=== PATIENT | female | born 1980 | race Caucasian/White ===

== ENCOUNTER 2020-12-16 14:09 | Outpatient (REF) | payer OTHER, SELFPAY ==
--- NOTE | ~2020-12-16 | MM_ITS ---
EXAMINATION: MM DIAGNOSTIC DIGITAL BREAST TOMOSYNTHESIS, BILATERAL CLINICAL INFORMATION: Due for yearly. Also follow-up probable benign calcifications central and upper outer right breast initially noted at baseline exam. The lifetime risk of breast cancer based on the Tyrer-Cuzick Model is 17%. COMPARISON: Mammography: 11/06/2019, 05/08/2019, 11/03/2018, 10/16/2018 (baseline, BI-RADS 0), targeted right breast ultrasound 05/08/2019. TECHNIQUE: Digital breast tomosynthesis is performed in both the craniocaudal and mediolateral oblique views along with computer-aided detection (CAD). Synthesized 2D images are generated from the tomosynthesis. Additional magnification right CC and magnification right ML views are obtained. FINDINGS: The breasts are heterogeneously dense, which may obscure small masses (ACR BI-RADS breast composition Category c). Parenchymal pattern is similar to prior exam. There is no significant mass or architectural abnormality. Known cyst posterior 12:00 position right breast is borderline increased in size. The axilla and skin contours are unremarkable. Additional magnification views right breast again show the punctate round and some layering calcifications central and upper outer breast. There has been no significant change from prior diagnostic study and the calcifications are now considered to be benign. Results are provided to the patient at time of visit by the technologist. MM/MM tomosynthesis diagnostic BI IMPRESSION: No significant changes from prior studies. Right breast calcifications are now considered to be benign. ASSESSMENT: BI-RADS 2: Benign RECOMMENDATION: Routine annual mammography screening. This patient's information was entered into a reminder system with a target due date for their next mammogram.
== END 2020-12-16 14:10 | disposition home or self-care (01) ==
LOC: HO.MAMMO 14:09
PROVIDERS: PCP Internal Medicine; Visit Provider Internal Medicine
DX: R92.1 Mammographic calcification found on diagnostic imaging of breast (principal)
CPT/HCPCS: 77062; 77066

== ENCOUNTER 2021-06-01 12:51 | Outpatient (REF) | payer OTHER, SELFPAY ==
--- NOTE | ~2021-06-01 | US_ITS ---
EXAMINATION: US ABDOMEN COMPLETE CLINICAL INFORMATION: Liver lesion seen on a prior MR exam.. COMPARISON: Dictated report MR thoracic spine performed at outside institution. Images not available for review. TECHNIQUE: Real-time imaging of the abdominal viscera. Color Doppler exam used. FINDINGS: PANCREAS: Normal. ABDOMINAL AORTA: The proximal, mid, and distal segments are normal in caliber. INFERIOR VENA CAVA: Visualized portions are normal. LIVER: MR thoracic spine report states 1.2 cm T2 indeterminate hyperintense focus within the right hepatic lobe. There is a cyst in the right hepatic lobe correlating to this finding on ultrasound. This is an anechoic cyst. Benign finding. This measures 0.7 x 0.5 x 0.9 cm. No suspicious liver lesions. No solid liver lesion. No intrahepatic bile duct dilatation. GALLBLADDER: Gallbladder partially distended. No gallstone. There is a 2 mm polyp at the anterior wall of the neck of the gallbladder. No pericholecystic fluid. Negative ultrasound Umaña's sign. COMMON BILE DUCT: Normal in caliber measuring 0.6 cm in diameter. RIGHT KIDNEY: Normal. No hydronephrosis. No renal calculi or focal parenchymal lesions. The kidney measures 10 cm in maximum dimension. LEFT KIDNEY: Normal. No hydronephrosis. No renal calculi or focal parenchymal lesions. The kidney measures 10.5 cm in maximum dimension. SPLEEN: Normal. The spleen measures 8.8 cm in maximum dimension. FREE FLUID: None. US/US abdomen complete IMPRESSION: 1. Small hepatic cyst right lobe liver correlating to finding of MR. No suspicious liver lesions. 2. 2 mm polyp in the gallbladder. No gallstone. No acute change of gallbladder. The bile duct dilatation.
== END 2021-06-01 12:52 | disposition home or self-care (01) ==
LOC: HO.US 12:51
PROVIDERS: Visit Provider Physician Assistant
DX: K76.89 Other specified diseases of liver (principal)
CPT/HCPCS: 76700

== ENCOUNTER 2021-06-14 15:50 | Outpatient (REF) | payer OTHER, SELFPAY ==
[2021-06-14 23:28] LABS: Folate 12.2 ng/mL (> or = 4.0); Vitamin B12 1172 pg/mL (200-900)
== END 2021-06-14 15:51 | disposition home or self-care (01) ==
LOC: HO.LAB 15:50
PROVIDERS: PCP Internal Medicine; Visit Provider Physician Assistant
DX: E53.8 Deficiency of other specified B group vitamins (principal)
CPT/HCPCS: 36415; 82607; 82746

== ENCOUNTER 2021-12-21 07:59 | Outpatient (REF) | payer OTHER, SELFPAY ==
--- NOTE | ~2021-12-21 | MM_ITS ---
EXAMINATION: MM SCREENING DIGITAL BREAST TOMOSYNTHESIS, BILATERAL CLINICAL INFORMATION: Screening. Asymptomatic. The lifetime risk of breast cancer based on the Tyrer-Cuzick Model is 16%. COMPARISON: Mammography: 12/16/2020, 11/06/2019, 05/08/2019, 11/03/2018, 10/16/2018 (baseline); ultrasound right breast 05/08/2019 TECHNIQUE: Digital breast tomosynthesis is performed in both the craniocaudal and mediolateral oblique views along with computer-aided detection (CAD). Synthesized 2D images are generated from the tomosynthesis. FINDINGS: The breasts are heterogeneously dense, which may obscure small masses (ACR BI-RADS breast composition Category c). Simple cyst posterior 12:00 right breast is slightly increased in size, currently measurements 1.0 x 1.2 cm in prior measurements 0.8 x 1.0 cm. There is no interval new dominant mass or architectural abnormality. Calcifications central and upper outer right breast are stable. There are no abnormal calcifications in either breast. The axilla and skin contours are unremarkable. No significant changes. MM/MM tomosynthesis screening BI IMPRESSION: No significant changes from prior exam. ASSESSMENT: BI-RADS 2: Benign RECOMMENDATION: Routine annual mammography screening. This patient's information was entered into a reminder system with a target due date for their next mammogram.
== END 2021-12-21 08:00 | disposition home or self-care (01) ==
LOC: HO.MAMMO 07:59
PROVIDERS: PCP Internal Medicine; Visit Provider Internal Medicine
DX: Z12.31 Encounter for screening mammogram for malignant neoplasm of breast (principal)
CPT/HCPCS: 77063; 77067

== ENCOUNTER 2022-05-17 13:19 | Outpatient (REF) | payer OTHER, SELFPAY ==
--- NOTE | ~2022-05-17 | US_ITS ---
EXAMINATION: US PELVIS CLINICAL INFORMATION: History of leiomyomas. Unknown LMP. COMPARISON: CT abdomen/pelvis 02/07/2016. TECHNIQUE: Ultrasound of the pelvis is performed using both transabdominal and transvaginal transducers along with Doppler. Transvaginal imaging is performed due to inadequate visualization transabdominally. FINDINGS: The uterus is anteverted and anteflexed measuring 13 x 7.5 x 10.5 cm. There is a 8.6 x 7.2 x 8.7 cm predominantly intramural fundal mass, a 4 x 5.2 x 3.3 cm right-sided mid to lower body intramural mass and a 4.1 x 2.7 x 3.3 cm left-sided mid body intramural mass. The endometrium is distorted by the uterine lesions however the visualized portions measure up to 0.5 cm in thickness. An IUD appears in satisfactory positioning within the endometrial canal. The right ovary measures 3.6 x 3.3 x 2.8 cm, 17 mL and the left ovary measures 2.6 x 1.2 x 1 cm, 5.3 mL. There is a simple cyst in the right ovary measuring 2.6 cm, almost certainly benign, for which no imaging follow-up is recommended. There is preserved flow to both ovaries at the moment of this examination. No free fluid. US/US pelvic and transvaginal IMPRESSION: 1. Multiple uterine lesions that statistically are in favor to represent fibroids. If clinical deemed appropriate further characterization with a pelvic MRI with and without IV contrast could be obtained. 2. IUD in satisfactory positioning within the endometrial canal. 3. Asymmetric enlargement of the right ovary likely related with the presence of a 2.6 cm cyst with otherwise normal morphology and preserved flow at the moment of this examination. If ovarian torsion is clinically suspected consider correlation with a pelvic MRI with and without IV contrast.
== END 2022-05-17 13:20 | disposition home or self-care (01) ==
LOC: HO.US 13:19
PROVIDERS: PCP Internal Medicine; Visit Provider Internal Medicine
DX: R39.14 Feeling of incomplete bladder emptying (principal); D25.9 Leiomyoma of uterus, unspecified
CPT/HCPCS: 76830; 76856